=== PATIENT | female | born 1990 | race Caucasian/White ===

== ENCOUNTER → 2023-06-08 | Outpatient (CLI) | payer OTHER | END | disposition home or self-care (01) | LOC: LAB 10:54 → LAB SHORT 10:54 | DX: O20.0 Threatened abortion (principal) | CPT/HCPCS: 84702; 86850; 86900; 86901 ==

== ENCOUNTER → 2024-06-03 | Outpatient (CLI) | payer OTHER ==
[~2024-06-03] MED LIST: ACET500 PO; DOCU100 PO; IBUP400 PO; PRENATAL TABLE1 EAC2 PO; SERT50 PO
== END ==
LOC: LAB SHORT 11:03 → LAB 11:03
DX: O09.90 Supervision of high risk pregnancy, unspecified, unspecified trimester (principal)
CPT/HCPCS: 87081; 87150

== ENCOUNTER 2024-06-13 03:26 | Inpatient (IN) | payer OTHER ==
[~2024-06-13] VITALS: Ht 160 cm; Wt 62.1 kg
[2024-06-13] VITALS (47 sets, daily range): BP systolic 92–162; BP diastolic 6–97
[2024-06-13] MEDS ORDERED: Misoprostol 200 MCG Tab BC PRN (04:00)
[2024-06-13] MEDS ORDERED: Methylergonovine Maleate 0.2MG / ML 1ML Amp IM PRN ×2 (04:00→15:10)
[2024-06-13] MEDS ORDERED: Acetaminophen 500 MG Tab PO PRN ×2 (04:00→15:20)
[2024-06-13] MEDS ORDERED: OXYTOCIN/RINGER'S LACTATE 500 ML IV PRN (04:00)
[2024-06-13] MEDS ORDERED: Lactated Ringer's 1,000 ML IV PRN (04:00)
[2024-06-13] MEDS ORDERED: Calcium Carbonate 500 MG Tab Chew PO PRN (04:00)
[2024-06-13] MEDS ORDERED: Misoprostol 200 MCG Tab PR PRN ×2 (04:00→15:15)
[2024-06-13] MEDS ORDERED: Ondansetron HCl 2 MG / ML 2ML Vial IV PRN (04:00)
[2024-06-13] MEDS ORDERED: Oxytocin 10 Unit / ML Vial IM PRN (04:00)
[2024-06-13] MEDS ORDERED: Carboprost Tromethamine 250 MCG/ML 1ML Amp IM PRN ×2 (04:00→15:20)
[2024-06-13] MEDS ORDERED: Lactated Ringer's 1,000 ML IV ONE ×2 (04:25→04:40)
[2024-06-13] MEDS ORDERED: FentaNYL 2mcg/ml-Bup 0.1% Epd 250 ML EPI PRN (04:40)
[2024-06-13] MEDS ORDERED: ePHEDrine Sulfate 50 MG/ML 1ML Injection XX PRN (04:40)
[2024-06-13] MEDS ORDERED: Lactated Ringer's 1,000 ML IV SCH ×3 (04:40→15:20)
[2024-06-13 04:46] LABS: BASOPHILS ABSOLUTE AUTO 0.05 K/mm3 (0.00-0.23); BASOPHILS PERCENT AUTO 1 % (0-2); EOSINOPHILS ABSOLUTE AUTO 0.13 K/mm3 (0.00-0.68); EOSINOPHILS PERCENT AUTO 1 % (0-6); Hematocrit 32.3 % (33.0-51.0); Hemoglobin 10.4 g/dL (11.5-16.0); IMMATURE GRAN ABSOLUTE AUTO 0.14 K/mm3 (0.00-0.10); IMMATURE GRAN PERCENT AUTO 1 % (0-1); LYMPHOCYTES ABSOLUTE AUTO 2.07 K/mm3 (0.84-5.20); LYMPHOCYTES PERCENT AUTO 20 % (21-46); MONOCYTES PERCENT AUTO 10 % (4-13); Mean Corpuscular HGB 26.6 pg (26.0-34.0); Mean Corpuscular HGB Conc 32.2 g/dL (31.5-36.5); Mean Corpuscular Volume 83 fL (80-100); Mean Platelet Volume 10.5 fL (9.1-12.4); NEUTROPHILS ABSOLUTE AUTO 7.08 K/mm3 (1.96-9.15); NEUTROPHILS PERCENT AUTO 67 % (41-73); Platelet Count 405 K/mm3 (150-400); RDW Coefficient Variation 14.2 % (11.7-14.2); RDW Standard Deviation 42.6 fL (35.1-46.3); Red Blood Cell Count 3.91 M/mm3 (3.80-5.20); White Blood Cell Count 10.57 K/mm3 (4.00-11.30)
[2024-06-13] MEDS ORDERED: Tranexamic Acid 100 ML IV PRN (04:50)
[2024-06-13] MEDS ORDERED: SERT50 PO ×2 (05:25)
[2024-06-13] MEDS ORDERED: OXYTOCIN/RINGER'S LACTATE 500 ML IV SCH ×2 (08:35→15:15)
--- NOTE | 2024-06-13 11:30 | NUR ---
0850 DEBRA GODWIN CNM, NOTIFIED RN THAT PT HAS AN ADQUATE PELVIS AND THE ESTIMATED WEIGHT IN THE LAST WEEK WAS [id number]
[2024-06-13] MEDS ORDERED: Docusate Sodium 100 MG Cap PO PRN (15:10)
[2024-06-13] MEDS ORDERED: Lanolin Cream TOP PRN (15:15)
[2024-06-13] MEDS ORDERED: Oxytocin 10 Unit / ML Vial IM ONE (15:15)
[2024-06-13] MEDS ORDERED: Ketorolac Tromethamine 30mg Vial IV PRN (15:15)
[2024-06-13] MEDS ORDERED: Ibuprofen 400 MG Tab PO PRN (15:15)
[2024-06-13] MEDS ORDERED: Witch Hazel/Glycerin PADS TOP PRN (15:15)
[2024-06-13] MEDS ORDERED: Benzocaine Topical Anesthetic Spray 60GM TOP PRN (15:20)
[2024-06-14 04:16] VITALS: BP 91/54
[2024-06-14 07:12] VITALS: BP 109/76
[2024-06-14] MEDS ORDERED: Prenatal Vit/FE Fumarate/FA 1 Tab PO SCH (09:00)
[2024-06-14] MEDS ORDERED: DOCU100 PO ×2 (10:54)
[2024-06-14] MEDS ORDERED: PRENATAL TABLE1 EAC2 PO ×2 (10:55)
[2024-06-14] MEDS ORDERED: IBUP400 PO ×2 (10:55)
[2024-06-14] MEDS ORDERED: ACET500 PO ×2 (10:55)
[2024-06-14 12:27] VITALS: BP 112/73
[2024-06-14 15:46] VITALS: BP 107/74
--- NOTE | 2024-06-14 15:57 | NUR ---
DISCHARGE TO HOME WITH NB
== END 2024-06-14 15:55 | disposition home or self-care (01) | DRG 806 ==
LOC: OBS 03:26 → BC 03:29 → OBS 03:58 → BC 03:59
PROVIDERS: ADMIT Advanced Practice Midwife
PROC: 10E0XZZ Delivery of Products of Conception, External Approach (ICD-10-PCS; principal; 2024-06-13)
PROC: 3E0R3BZ Introduction of Anesthetic Agent into Spinal Canal, Percutaneous Approach (ICD-10-PCS; 2024-06-13)
PROC: 00HU33Z Insertion of Infusion Device into Spinal Canal, Percutaneous Approach (ICD-10-PCS; 2024-06-13)
PROC: 0HQ9XZZ Repair Perineum Skin, External Approach (ICD-10-PCS; 2024-06-13)
DX: O99.344 Other mental disorders complicating childbirth (principal); O99.324 Drug use complicating childbirth; Z37.0 Single live birth; F41.8 Other specified anxiety disorders; O99.02 Anemia complicating childbirth; Z3A.37 37 weeks gestation of pregnancy; F12.90 Cannabis use, unspecified, uncomplicated; O70.0 First degree perineal laceration during delivery; O77.0 Labor and delivery complicated by meconium in amniotic fluid
CPT/HCPCS: 36415; 51702; 59025; 85025; 86850; 86900; 86901; 99214; A9270; J1885; J2405; J2590; J7120